=== PATIENT | female | born 1960 | race Caucasian/White ===

== ENCOUNTER → 2017-10-04 15:33 | Outpatient (CLI) | payer OTHER, SELFPAY ==
--- NOTE | 2017-10-04 15:38 | BI_ITS ---
MAMMOGRAPHY - BILATERAL SCREENING 3-D JOSSE SYNTHESIS REASON FOR EXAM: Female, 56 years old. Bilateral Screening 3-D tomosynthesis PERTINENT HISTORY: No significant family history. TECHNIQUE: 2-D mammograms and 3-D Josse synthesis of the breast (s) were performed. CAD was performed. COMPARISON: 05/04/2016 through 04/03/2013. FINDINGS: The breast composition is heterogeneously dense that can obscure small breast masses. No new significant architectural distortion, asymmetric density, abnormal microcalcification cluster, dominant mass, adenopathy, skin thickening or nipple retraction identified. Coarse benign-appearing calcifications. No significant abnormality identified with tomosynthesis. BI/SCREENING MAMM (CAD), BILAT IMPRESSION: No mammographic sign of malignancy. Routine yearly mammograms recommended. ASSESSMENT CATEGORY: BIRADS Category 2: Benign. A letter regarding these results will be sent to the patient by the facility within 30 days. FOLLOW UP RECOMMENDATION: Yearly follow up mammogram recommended. (A) Negative results should not deter biopsy as a palpable lesion if present should be followed on clinical grounds and biopsy performed if clinically persistent for 3 months or increasing size. Approximately 10% of breast cancers are not detected by mammography. A normal mammogram should not delay biopsy of a clinically suspicious abnormality. Electronically Signed: Leobardo Estrada, at 21:52 EDT Tel , Service support ,
== END ==
PROVIDERS: Family Provider Family Medicine; PCP Family Medicine; Visit Provider Obstetrics & Gynecology
DX: Z12.31 Encounter for screening mammogram for malignant neoplasm of breast (principal)
CPT/HCPCS: 77063; 77067

== ENCOUNTER 2018-06-19 10:31 | Day surgery (SDC) | payer OTHER, SELFPAY ==
[2018-06-17 18:49] LABS: Hematocrit 40.7 % (37-47); Hemoglobin 13.1 g/dl (12.0-15.0); Mean Corp Hgb Conc 32.2 g/gl (32-36); Mean Corpuscular Hgb 27.7 pg (27.0-32.0); Mean Platelet Vol. 10.3 fl (6.2-12.0); Platelet Count 242 K/mm3 (150-450); RBC Distribution Width CV 13.5 % (11.6-14.6); Red Blood Count 4.73 M/mm3 (4.2-5.4); White Blood Count 6.6 K/mm3 (4.4-11.0)
[2018-06-17 19:34] LABS: Scan Indicated on CBC? Y/N NO
[2018-06-19] VITALS (7 sets, daily range): BP systolic 95–115; BP diastolic 53–67; PULSE 69–90; RESP 16–18; TEMP 36.6–37; O2SAT 93–100; BMI 21.7
--- NOTE | 2018-06-19 | FLU_PTH ---
PATIENT: LOLI PAGAN [place] [facility] [id number] AGE/SX: 57/F ROOM: RE06/19/[address]: Dr. Ursula Batista MD : 1960 BED: DIS: 06/19/2018 SPEC #: [id number] RECD: 06/19/18 14:30 STATUS: FORTINO KATELIN #: [id number] MAX: 06/19/18 00:[address]: Ursula Batista DEPT: CYTOLOGY RECD BY: Alan Spencer ENTERED: 06/19/18 14:31 SP TYPE: Fluid OTHR DR: Dr. Robbin Quiros III, MD Tissues: OVARIAN CYST Procedures: Special Stain Group II Surgery Specimen Level IV Cytospin Fluid HEADER OPERATION: Laparoscopic right salpingo-oophorectomy, hysteroscopy PRE-OP DIAGNOSIS: Postmenopausal bleeding, right ovarian cyst TISSUE SUBMITTED: Right ovary cyst fluid for cytology DIAGNOSIS CYTOLOGY Right ovary cyst fluid for cytology (cytospin and cell block): Negative for malignant cells. See comment. SJ:rg 06/20/18 COMMENT The specimen predominantly consists of benign epithelial cells and macrophages. Mucin stain with matched control is used in the evaluation of the specimen. No mucin positive cells are noted. Please also correlate with corresponding surgical specimen ([id number]). CYTOLOGY STUDY Slides are reviewed. CYTOLOGY GROSS Received is 10 ml of yellow cloudy fluid labeled with the patient's name and and designated per the requisition as right ovarian cyst. Submitted for cytology preparation including cell block. / 06/19/18 TC:5 CPT: 59621, 09293, 23425
--- NOTE | 2018-06-19 | OV_PTH ---
PATIENT: LOLI PAGAN LOC: [facility] [place] U#:[id number] AGE/SX: 57/F ROOM: RE06/19/[address]: Dr. Ursula Batista MD : 1960 BED: DIS: 06/19/2018 SPEC #: [id number] RECD: 06/19/18 14:31 STATUS: FORTINO KATELIN #: [id number] MAX: 06/19/18 00:[address]: Ursula Batista DEPT: SURGICAL PATHOLOGY RECD BY: Alan Spencer ENTERED: 06/19/18 14:31 SP TYPE: OVARY OTHR DR: Dr. Robbin Quiros III, MD Tissues: A - Right ovary B - Endometrium, NOS Procedures: Special Stain Group II Mucicarmine Stain (control) Surgery Specimen Level IV Surgery Specimen Level V HEADER OPERATION: Laparoscopic right salpingo-oophorectomy, hysteroscopy PRE-OP DIAGNOSIS: Postmenopausal bleeding, right ovarian cyst TISSUE SUBMITTED: A - Right ovary and fallopian tube, B - Endometrial polyp MICROSCOPIC DIAGNOSIS A. 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 See comment. Fibroma (2 cm in greatest dimension). See comment. B. Endometrial polyp: Benign endometrial polyp with focal simple cystic hyperplasia without atypia. SJ:zbigniew 06/20/18 COMMENT A. Mucinous stain with matched control was used in the evaluation of the specimen. Lining cells are positive for mucin. MICROSCOPIC DESCRIPTION Slides are reviewed. GROSS DESCRIPTION A - Received in fixative is one container labeled with the patient's name and designated right ovary and fallopian tube. The specimen consists of a collapsed cystic ovary and adjacent fallopian tube. The fallopian tube measures 6 cm in length and 0.5 cm in diameter. The fimbrial end is identified. Focal tuboovarian adhesions are noted. The soft to cystic ovary measures 5.5 x 4 x 1.5 cm. The outer surface is smooth. The ovary weighs 15 gm. Sections reveal a cyst filled with a small amount of mucoid material occupying almost entire ovary. A focal solid area is noted measuring 2 x 1 x 1 cm. The rest of the cyst wall is without any papillation. The cyst wall measures up to 0.2 cm in thickness. Air Director sections are submitted in four cassettes as follows: 1 - fallopian tube, 2 - solid area of ovary, 3 & 4 - other areas of ovary. The solid area is entirely submitted. B - Received in fixative is one container labeled with the patient's name and designated endometrial polyp. The specimen consists of a buchanan-pink polyp measuring 3 x 1.2 x 0.4 cm. The specimen is longitudinally sectioned and submitted entirely in one cassette. / SJ:zbigniew 06/19/18 TC:1 CPT: 51520, 45184, 80307
--- NOTE | 2018-06-19 11:58 | PCM.DC.D&C ---
Discharge Diet: No Restrictions Discharge Activity: May not drive while taking narcotic pain medications., May Shower, May Take a Tub Bath Return to work on:: 06/23/18 May resume sexual activity in: 1-2 weeks Call your doctor if you observe: Fever of 101 or Higher, Using more than one pad per hour, Uncontrolled pain Change Dressing in (Days):: 4 Remove Dressing in (days):: 4 Cleanse incision/area with: Soap & Water, Keep Dressing Clean & Dry Additional Instructions: Take Tylenol 500 mg - 1000 mg every 8 hrs as needed. You may ADD EITHER two Aleve or three Ibuprofen by mouth every 8 hrs for pain. Add OxyIR as needed for more severe pain. Resume activity as comfortable. Allergies/Adverse Reactions: Allergies No Known Allergies Allergy (Verified 06/19/18 10:40) Medications to take at Discharge Fexofenadine HCl [Magda Allergy] 180 mg PO DAILY 06/19/18 Lutein 20 mg PO DAILY 06/19/18 Mometasone Furoate [Nasonex] 1 spray NASAL DAILY 06/19/18 Multivitamin [Daily Multiple Vitamin] 1 each PO DAILY 06/19/18 Omeprazole [Prilosec] 20 mg PO DAILY 06/19/18 Oxycodone [Oxyir] 5 - 10 mg PO Q6H PRN PRN 3 Days #10 tablet 06/19/18 The following prescriptions were given: Oxycodone [Oxyir] 5 - 10 mg PO Q6H PRN PRN 3 Days #10 tablet PRN Reason: Mod-Severe Pain (4-10/10) Primary Care Physician: Robbin Quiros III, MD [Primary Care Provider] - Test Results: Test results from this visit will be discussed in further detail at your follow-up appointment, if applicable. Please Follow Up With: Ursula Batista MD - [phone] When: in 2 wk for postoperative check up.
--- NOTE | 2018-06-19 12:03 | DCINST_ITS ---
Discharge Diet: No Restrictions Discharge Activity: May not drive while taking narcotic pain medications., May Shower, May Take a Tub Bath Return to work on:: 06/23/18 May resume sexual activity in: 1-2 weeks Call your doctor if you observe: Fever of 101 or Higher, Using more than one pad per hour, Uncontrolled pain Change Dressing in (Days):: 4 Remove Dressing in (days):: 4 Cleanse incision/area with: Soap & Water, Keep Dressing Clean & Dry Additional Instructions: Take Tylenol 500 mg - 1000 mg every 8 hrs as needed. You may ADD EITHER two Aleve or three Ibuprofen by mouth every 8 hrs for pain. Add OxyIR as needed for more severe pain. Resume activity as comfortable. Allergies/Adverse Reactions: Allergies No Known Allergies Allergy (Verified 06/19/18 10:40) Medications to take at Discharge Fexofenadine HCl [Magda Allergy] 180 mg PO DAILY 06/19/18 Lutein 20 mg PO DAILY 06/19/18 Mometasone Furoate [Nasonex] 1 spray NASAL DAILY 06/19/18 Multivitamin [Daily Multiple Vitamin] 1 each PO DAILY 06/19/18 Omeprazole [Prilosec] 20 mg PO DAILY 06/19/18 Oxycodone [Oxyir] 5 - 10 mg PO Q6H PRN PRN 3 Days #10 tablet 06/19/18 The following prescriptions were given: Oxycodone [Oxyir] 5 - 10 mg PO Q6H PRN PRN 3 Days #10 tablet PRN Reason: Mod-Severe Pain (4-10/10) Primary Care Physician: Robbin Quiros III, MD [Primary Care Provider] - Test Results: Test results from this visit will be discussed in further detail at your follow- up appointment, if applicable. Please Follow Up With: Ursula Batista MD - [phone] When: in 2 wk for postoperative check up.
--- NOTE | 2018-06-19 12:08 | OP.PCM_ITS ---
Report of Operation Date of Procedure: 06/19/18 Pre-Operative Diagnosis: postmenopausal bleeding, thickened endometrial stripe. R ovarian cyst 5-6 cm Post-Operative Diagnosis: Same Surgery/Procedure Performed:: Laparoscopy. R oophorectomy. Hysteroscopy, D and C Description of Surgical Findings:: Laparoscopic Findings: There is a normal-appearing [anteverted] uterus. The uterine fundus was adherent to the anterior abdominal wall. The left fallopian tube and ovary was normal in appearance. The right ovary was enlarged , well encapsulated with no surface excrescences, and freely mobile. Gross inspection of the bowel, omentum, liver edge are within normal limits. Photos were taken of the uterus and left fallopian tube and ovary after the right salpingo-oophorectomy. Hysteroscopic findings: Normal-appearing atrophic endometrium. Large endometrial polyp noted. Normal tubal ostia visualized bilaterally. manager risk management: Barbara Irizarry Type of Anesthesia:: General - Dr Ramos Anesthesiologist: Jason Vinson - [facility] Specimen's removed: R ovary and fallopian tube. Endometrial polyp Drains: Red Dempsey catheter Estimated Blood Loss (mL): 20 Fluids Replaced: LR Description of Procedure: Narrative account: After the risks, benefits, alternatives of the procedure have been reviewed with the patient, informed consent was obtained. The patient was taken to the operating room with an IV running. She was positioned on the operating table in dorsal supine position, where she was given general anesthesia. Once asleep she was repositioned into the dorsal lithotomy position and prepped and draped in the usual sterile fashion. A red Dempsey catheter was used to drain the bladder prior to initiating the case. A sponge stick was placed into the vagina to allow manipulation of the cervix and uterus during the case. Attention was then turned to the anterior abdominal wall where 0.5% percent Marcaine with epinephrine was instilled at the suprapubic and infraumbilical skin and at a point midway between the two, in the midline. Skin incisions were then created in the midline at the suprapubic skin, at the infraumbilical skin, and at a point in the midline midway between the two. While maintaining upward traction of the anterior abdominal wall, a Veress needle was inserted through the umbilical incision into the peritoneal cavity. There was free drop of saline, low opening pressure and free flow of CO2 noted. Once the intra-abdominal pressure had reached 12 mmHg the Veress needle was removed and a bladeless 5 mm trocar was inserted through the infraumbilical skin incision into the peritoneal cavity. Correct placement was confirmed using the scope. Under direct visualization then with the patient in Trendelenburg position, a bladeless 12 mm trocar was inserted in through the suprapubic skin incision into the peritoneal cavity, and a 5 mm bladeless trocar was placed at the mid-lower abdominal incision midway between the infraumbilical and suprapubic trocars. The uterus was anteverted and adherent to the anterior abdominal wall at the anterior fundus. Using the LigaSure device this adhesion was divided along with filmy adhesions at the lower uterine segment and the uterus fell free to the posterior pelvis. The left fallopian tube and ovary were WNL. The R fallopian tube appeared normal, but was stretched across the enlarged freely mobile right ovary. The ovary was smoothly encapsulated without excrescences. The right fallopian tube and ovary were grasped and retracted medially and using a LigaSure device the right fallopian tube and ovary were excised from the infundibulopelvic ligament and the uteroovarian ligament. The right ovary and fallopian tube were then placed in an EndoCatch bag and brought through the suprapubic trocar. The trocar was removed and the bag was brought to the suprapubic skin. The bag was opened at the top and a needle aspirator was used to aspirate serous appearing sticky fluid from the ovary The ovary was collapsed in this manner and brought through the suprapubic incision in the intact EndoCatch bag. The suprapubic trocar was reintroduced into the abdominal cavity. Laparoscopy revealed excellent hemostasis at the excision site. Photos were taken of the uterus and remaining left fallopian tube and ovary and of the right upper quadrant and liver edge. At this point the laparoscopic portion of the procedure was terminated. The pneumoperitoneum was reduced and the instruments and trocars were removed from the anterior abdominal wall skin. The suprapubic fascia was closed with 2-0 Vicryl. The skin incisions were closed with 4-0 Monocryl in a subcuticular fashion Dermabond and op sites were applied to the skin. The single-toothed tenaculum and Louis cannula were then removed from the vagina. Attention was then turned to the hysteroscopy, D and C and possible polypectomy. The sponge stick was removed from the vagina. A Graves speculum was placed into the vagina and the cervix was brought into view. Cervix was instilled with 10 cc of 1% lidocaine [without] epinephrine as a paracervical block using a 20-gauge spinal needle in the 2:00 4:00 8:00 and 10:00 positions. A single- tooth tenaculum was applied to the anterior lip of the cervix. The cervix was sequentially dilated to allow admission of the hysteroscope. The hysteroscopy was performed with the findings noted above. A sharp curettage was then performed and pieces of tissue were were withdrawn and set aside for later pathology review. There was good crei in all quadrants This point the procedure was terminated the single-toothed tenaculum was removed from the anterior lip of the cervix and a Ray-Wayne gauze was used to remove any remaining tissue and blood from the upper vagina and cervix. Excellent hemostasis was noted. The speculum was removed. The patient was returned to dorsal supine position. She was awakened from general anesthesia and then transferred to her recovery room bed in stable condition after tolerating the procedure well. Sponge, lap, needle, and instrument counts were correct x2. Medications given intraoperatively included 10 cc of half percent Marcaine with epinephrine used as a subcutaneous block and Toradol 30 mg IV x1. For complete listing the medications given intraoperatively, see the anesthesia record. - Admit VTE Documentation VTE Present on Admission: No VTE Mechan Device Prophylaxis: SCD's VTE Pharm Prophylaxis ordered?: No
[2018-06-19] MEDS: Bupiv/Epi 0.5% Mpf 30 ML Vial (12:20)
== END 2018-06-19 15:52 | disposition home or self-care (01) ==
LOC: SDC 10:32 → AC 10:33
PROVIDERS: Family Provider Family Medicine; PCP Family Medicine; Referring Provider Obstetrics & Gynecology; Visit Provider Obstetrics & Gynecology
PROC: (CPT 58720; principal; 2018-06-19 11:45)
DX: D27.0 Benign neoplasm of right ovary (principal); D39.11 Neoplasm of uncertain behavior of right ovary; N85.01 Benign endometrial hyperplasia; K21.9 Gastro-esophageal reflux disease without esophagitis; Z79.899 Other long term (current) drug therapy
CPT/HCPCS: 00952; 58558; 58661; 36415; 85027; 86850; 86900; 88108; 88305; 88307; 88313; J7120; J2405

== ENCOUNTER → 2018-10-10 12:15 | Outpatient (CLI) | payer OTHER, SELFPAY ==
[2018-06-19 10:54] VITALS: BMI 21.7
--- NOTE | 2018-10-10 12:19 | BI_ITS ---
MAMMOGRAPHY - BILATERAL SCREENING REASON FOR EXAM: Female, 57 years old. Routine annual screening examination. PERTINENT HISTORY: Non-contributory. TECHNIQUE: Digital bilateral breast josse (3D mammographic acquisition) in the CC and MLO projections. 2-D mediolateral oblique (MLO) and craniocaudad (CC) views of both breasts were obtained. CAD: Full Field Digital Mammography with Computer Added Detection was performed. COMPARISON: Comparison is made with prior study dated October 04, 2017 and May 04, 2016. FINDINGS: Breast Composition: The breasts are heterogeneously dense, which may obscure small masses. There are no dominant masses or suspicious calcifications. No other significant abnormalities are identified. There has been no significant change since the prior study. BI/SCREEN MAMM (CAD) W/JOSSE BILAT IMPRESSION: Stable bilateral screening mammogram. Yearly follow-up mammogram recommended. (A) ASSESSMENT CATEGORY: BIRADS Category 1: Negative. A letter regarding these results will be sent to the patient by the facility within 30 days. Approximately 10% of breast cancers are not detected by mammography. A normal mammogram should not delay biopsy of a clinically suspicious abnormality. [id number] Electronically Signed: Klever Laguerre, at 13:05 EDT , Service support ,
== END ==
PROVIDERS: Family Provider Family Medicine; PCP Family Medicine; Referring Provider Obstetrics & Gynecology; Visit Provider Obstetrics & Gynecology
DX: Z12.31 Encounter for screening mammogram for malignant neoplasm of breast (principal)
CPT/HCPCS: 77063; 77067

== ENCOUNTER → 2019-10-13 08:13 | Outpatient (CLI) | payer OTHER, SELFPAY ==
[2018-06-19 10:54] VITALS: BMI 21.7
--- NOTE | 2019-10-13 08:20 | BI_ITS ---
MAMMOGRAPHY - BILATERAL SCREENING REASON FOR EXAM: Female, 58 years old. Routine annual screening examination. PERTINENT HISTORY: Non-contributory. TECHNIQUE: Digital bilateral breast josse (3D mammographic acquisition) in the CC and MLO projections. 2-D mediolateral oblique (MLO) and craniocaudad (CC) views of both breasts were obtained. CAD: Full Field Digital Mammography with Computer Added Detection was performed. COMPARISON: Comparison is made with prior study dated 10/10/2018 and 10/04/2017. FINDINGS: Breast Composition: The breasts are heterogeneously dense, which may obscure small masses. There are no dominant masses or suspicious calcifications. No other significant abnormalities are identified. There has been no significant change since the prior study. BI/SCREEN MAMM (CAD) W/JSOSE BILAT IMPRESSION: Stable bilateral screening mammogram. Yearly follow-up mammogram recommended. (A) ASSESSMENT CATEGORY: BIRADS Category 1: Negative. A letter regarding these results will be sent to the patient by the facility within 30 days. Approximately 10% of breast cancers are not detected by mammography. A normal mammogram should not delay biopsy of a clinically suspicious abnormality. [id number] Electronically Signed: Klever Laguerre, at 9:13 EDT , Service support ,
== END ==
PROVIDERS: PCP Family Medicine; Referring Provider Obstetrics & Gynecology; Visit Provider Obstetrics & Gynecology
DX: Z12.31 Encounter for screening mammogram for malignant neoplasm of breast (principal)
CPT/HCPCS: 77063; 77067

== ENCOUNTER → 2020-01-26 10:20 | Outpatient (CLI) | payer OTHER, SELFPAY ==
[2018-06-19 10:54] VITALS: BMI 21.7
[2020-02-01 01:44] LABS: HPV APTIMA, High Risk Negative (Negative); HPV Reflexed? NOT INDICATED
== END ==
PROVIDERS: PCP Family Medicine; Visit Provider Student in an Organized Health Care Education/Training Program
DX: Z12.4 Encounter for screening for malignant neoplasm of cervix (principal)
CPT/HCPCS: 88175; G0145

== ENCOUNTER → 2020-03-21 | Outpatient (CLI) | payer OTHER, SELFPAY ==
[2018-06-19 10:54] VITALS: BMI 21.7
--- NOTE | 2020-03-22 | EMB_PTH ---
PATIENT: LOLI PAGAN LOC: [facility] U#:[id number] AGE/SX: 59/F ROOM: RE03/21/[address]: Dr. Nazia Ojeda DO : 1960 BED: DIS: 03/21/2020 SPEC #: [id number] RECD: 03/22/20 10:41 STATUS: FORTINO KATELIN #: [id number] MAX: 03/22/20 00:[address]: Nazia Ojeda DEPT: SURGICAL PATHOLOGY RECD BY: Alan Spencer ENTERED: 03/22/20 10:41 SP TYPE: ENDOM BX/C SHEA DR: Dr. Robbin Quiros III, MD Tissues: Endometrium, NOS Procedures: Surgery Specimen Level IV HEADER OPERATION: Endometrial biopsy PRE-OP DIAGNOSIS: Endometrial polyp with endometrial hyperplasia TISSUE SUBMITTED: Endometrial biopsy MICROSCOPIC DIAGNOSIS Endometrial biopsy: Scant fragment of benign ecto- and endocervical epithelium with mild acute and chronic inflammation and mucous. See comment. SJ:zbigniew 03/23/2020 COMMENT The specimen predominantly consists of mucous. Endometrial tissue is not identified in the submitted specimen. Clinical correlation and appropriate follow up are necessary. Please make reference to previous specimen ([id number]), endometrial polyp with diagnosis of benign endometrial polyp with focal simple cystic hyperplasia without atypia. MICROSCOPIC DESCRIPTION Slides are reviewed. GROSS DESCRIPTION Received in fixative is one container labeled with the patient's name and designated endometrial biopsy. The specimen consists of multiple irregular fragments of buchanan mucoid tissue that in aggregate measure 1 x 0.7 x 0.2 cm. The specimen is totally submitted in one cassette. / MATT:zbigniew 03/22/20 TC: Cannot code CPT: 92797
== END | disposition home or self-care (01) ==
LOC: LABSPEC 03-22 08:28
PROVIDERS: PCP Family Medicine; Visit Provider Student in an Organized Health Care Education/Training Program
DX: N84.0 Polyp of corpus uteri (principal)
CPT/HCPCS: 88305

== ENCOUNTER → 2020-04-14 12:54 | Outpatient (CLI) | payer OTHER, SELFPAY ==
[2018-06-19 10:54] VITALS: BMI 21.7
--- NOTE | 2020-04-14 12:58 | CT_ITS ---
STUDY: CT ABDOMEN AND PELVIS WITH AND WITHOUT CONTRAST REASON FOR EXAM: Female, 59 years old. MASS FOUND IN BLADDER ON US AT OBGYN OFFICE, LOW ABD PAIN WHEN AREA PRESSED ON, RT OOPHERECTOMY RADIATION DOSAGE (If Supplied By Facility): CTDIvol = ( 12.69 ) mGy, DLP = ( 1826.63 ) mGycm TECHNIQUE: Transaxial images were obtained from the dome of the diaphragm to the symphysis pubis without oral contrast. IV 100mL Isovue-300 was administered. Sagittal and coronal images were reconstructed. Individualized dose optimization techniques were used for this CT. COMPARISON: None. FINDINGS: The visualized lung bases are unremarkable. The visualized portions of the heart are within normal limits. Normal liver. Normal gallbladder and extrahepatic biliary system. Normal spleen. Normal pancreas. Normal bilateral adrenal glands. Normal right kidney. Normal left kidney. Normal visualized stomach. Normal small intestine. Normal colon. The appendix is visualized and appears normal. Normal abdominal aorta. Normal inferior vena cava. Normal retroperitoneum. Normal urinary bladder. Normal visualized uterus. Normal abdominal wall. Normal osseous structures. CT/CT Abd/Pelvis W/WO Contrast IMPRESSION: Normal unenhanced and enhanced CT of the abdomen and pelvis. There is no abnormal mass in the urinary bladder. Electronically Signed: Mita Yadav MD at 14:07 EST Tel , Service support ,
== END ==
PROVIDERS: PCP Family Medicine; Referring Provider Nurse Practitioner Adult Health; Visit Provider Nurse Practitioner Adult Health
DX: R93.41 Abnormal radiologic findings on diagnostic imaging of renal pelvis, ureter, or bladder (principal)
CPT/HCPCS: 74178; Q9967

== ENCOUNTER 2021-12-11 18:30 | Outpatient (RCR) | payer OTHER, SELFPAY ==
--- NOTE | 2021-10-13 07:55 | HP.OTEVAL_ITS ---
Patient's Visit Information LOLI PAGAN is a 60 year old F, referred to Occupational Therapy by ROOSEVELT YUEN, with a diagnosis of Boutonniere deformity of left LF.. Date of Evaluation: 10/10/21 Occupational Therapist: Taryn Dang, SHERI/Katharine, CHT - Subjective This 60 year old female was seen for OT eval with dx of Boutonniere deformity of left LF. pt states 10 years ago she injured her left LF- pt states she had reconstructive sx but this sx was not successful. 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 Ortiz. He recommended sx - pt underwent sx to repair Boutonniere deformity in August 23, 2021. Extensor tenotomy for reposition ing of the deformed DIP Joint and arthrodesis of DIP joint with internal fixation with Buzz wires and local bone graft- stitches removed 09/14/21 and pins removed 09/28/21 (3 pin sites) pt arrives with the custom orthosis provided by Kelly WADE/Katharine on 08/28/21. pt demo ind. removal of orthosis and demo understanding of prior ROM exercise given - pt has concerns her finger is not moving well. This is limiting her IND with ADLs and IADLs and playing her violin. - ROM MP: right 0/100 left 0/105 PIP: right 0/100 left -55/70 DIP: right 0/85 left 15/15 ROM Comments: pt demo with limited right LF PIPJ motion-. DIP fusion - Strength Patient Manager: right 60# left NT Lateral Pinch: right 8# left NT Tripod Pinch: right 10# left NT - Quick DASH-Disab of Arm,Shoulder& Hand Quick DASH Score: 31.5775 - Goals Goal:100% adherence to protocol: Yes Goal:Daily scar massage when approriate: Yes Goal:ROM equal to unaffected hand: Yes Comment: PIP ROM of -10/90 or greater Goal:Patient Manager/Pinch strength at least 75% of unaffected hand: Yes Goal:Full use of affected hand in daily activities including: Yes Goal:Decrease scar hypersensitivity: Yes - Rehabilitation General Assessment: pt underwent sx to repair Boutonniere deformity in August 23, 2021. Extensor tenotomy for repositioning of the deformed DIP Joint and arthrodesis of DIP joint with internal fixation with Buzz wires and local bone graft- stitches removed 09/14/21 and pins removed 09/28/21 (3 pin sites) pt arrives with the custom orthosis provided by Kelly Mcdonald OTR/L on 08/28/21. pt currently demo with limited PIP ROM, weakness increasing difficulty with IADLS and leisure tasks. Pt would benefit from further skilled OTR/L,CHT services 1-2x week for 4 -6 weeks to assist pt in reaching her maximal ROM and rehab potential. Rehabilitation Potential: Fair - Anticipated Interventions A/AAROM/PROM, Strengthening, Scar Care, Triggerpoint Release, Modalities, Orthoses, Joint Protection/Energy Conservation, Ergonomic Education, Fine Motor Coord/Alexis, Education re Diagnosis - Visit Plan Frequency: 1-2x /Week Duration: 4 Months TEXT: Thank you for the opportunity to evaluate your patient. For Medicare and Medicare HMO plans, please review the plan of care and approve it. It will need to be FAXED BACK to us at [phone] for Medicare purposes. Please let me know if there are questions or concerns regarding this plan of care. Physician Signature: Date:
--- NOTE | 2021-10-31 07:41 | OTREVAL_ITS ---
ROOSEVELT YUEN, It has been my pleasure to treat LOLI PAGAN over the last 4 visits for Boutonniere deformity of left LF.. Please see the progress note below for an update on the occupational therapy plan of care! 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 pt states she works with her finger daily has noticed stiffness of joint is better with flexion - has not been able to gain extension- Objective/Function: pt demo with PIP ROM of -55/90*. TROM 35*. left MCP flexion 100*. Please advise on expectation of pts PIP extension Plan Frequency: 1-2x /Week Duration: 4 Weeks Plan: cont to increase strength and ROM (blocking/ PROM). pt to start playing her violin. return to daily tasks Goals - Goals Patient Goals: Regain Mobility, Improve Fine Motor Skills, Use Hand/Wrist/Arm Normally Again Goal:100% adherence to protocol: Yes Goal:Daily scar massage when approriate: Yes Goal:ROM equal to unaffected hand: Yes Goal:Pattern Illustrator/Pinch strength at least 75% of unaffected hand: Yes Goal:Full use of affected hand in daily activities including: Yes Goal:Decrease scar hypersensitivity: Yes Anticipated Interventions Anticipated Interventions: A/AAROM/PROM, Strengthening, Scar Care, Triggerpoint Release, Modalities, Orthoses, Joint Protection/Energy Conservation, Ergonomic Education, Fine Motor Coord/Alexis, Education re Diagnosis Please do not hesitate to contact me at [phone] by phone or if you have questions or concerns regarding this new plan of care! Sincerely, Taryn Dang, OTR/L, CHT
--- NOTE | 2022-02-28 09:53 | HP.OT.NRP ---
LOLI PAGAN was seen in my office for initial evaluation on 10/10/21. The following Plan of Care was established for this patient: Initial Frequency: 1-2x /Week Initial Duration: 4 Weeks Plan: cont to increase strength and ROM (blocking/ PROM). pt to start playing her violin. return to daily tasks Anticipated Interventions: A/AAROM/PROM, Strengthening, Scar Care, Triggerpoint Release, Modalities, Orthoses, Joint Protection/Energy Conservation, Ergonomic Education, Fine Motor Coord/Alexis, Education re Diagnosis This patient was last seen in our office 12/11/21. Pertinent comments regarding their Occupational therapy will appear below: pt last seen with measurements 95* flexion 60* ext. pt demo understanding of her HEP. Pt was last seen on 12/11/21 and at this time is d/c with HEP. [ End ] At this point I will be discontinuing this patient from occupational therapy. I would be happy to see this patient again in the future if found appropriate by the physician. Thank you! Taryn Dang, OTR/L, CHT
== END 2021-12-11 19:00 | disposition home or self-care (01) ==
LOC: OT 18:30
PROVIDERS: PCP Internal Medicine
DX: M20.022 Boutonniere deformity of left finger(s) (principal)
CPT/HCPCS: 97035; 97110; 97140; 97166; 97530

== ENCOUNTER 2022-02-20 09:59 | Emergency (ER) | payer OTHER, SELFPAY ==
[2022-02-20 09:59] VITALS: BP 125/73; PULSE 90; RESP 18; TEMP 36.6; O2SAT 99; BMI 23.1
--- NOTE | 2022-02-20 10:26 | EDS_ITS ---
HPI History of Present Illness Chief Complaint: Shortness of Breath Detail of Chief Complaint: Not feeling well x2 weeks Informant: patient Narrative Narrative: Patient presents the emergency department with complaint of shortness of breath that really started yesterday. Patient states overall she is not been feeling well for about 2 weeks. Patient initially had a pharyngitis. Patient seen in urgent care 3 days ago and diagnosed with influenza A. Patient seen by nurse practitioner for her PCP today and it was noted that she had some stridor with cough and hard time catching her breath and was referred to the ER for concern for possible pneumonia. Patient continues to have temps up to 103. Patient was prescribed Tamiflu today. Patient denies recent travel or surgery. She does cough frequently and describes some chest soreness mostly at the end of the day. Patient states that her is now also with upper respiratory symptoms and her son has developed upper respiratory symptoms. 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 Patient has had her flu vaccine and COVID-vaccine. PFSH PFSH Medical History no medical history Home Medications fexofenadine 180 mg tablet (Magda Allergy) 180 mg PO DAILY 06/19/18 [History Last Taken Unknown] lutein 20 mg capsule 20 mg PO DAILY 06/19/18 [History Last Taken Unknown] mometasone 50 mcg/actuation nasal spray (Nasonex) 1 spray DAILY 06/19/18 [Hist ory Last Taken Unknown] multivitamin (Daily Multiple tablet) 1 ea PO DAILY 06/19/18 [History Last Taken Unknown] omeprazole 20 mg capsule,delayed release 20 mg PO DAILY 06/19/18 [History Last Taken Unknown] benzonatate 200 mg capsule 200 mg PO TID PRN cough #20 caps 02/20/22 [Rx Last Taken Unknown] prednisone 20 mg tablet 20 mg PO BID #10 tabs 02/20/22 [Rx Last Taken Unknown] Allergy/AdvReac Type Severity Reaction Status Date / Time CHLORAHEXIDINE AdvReac NEEDS Uncoded 02/20/22 10:03 FOLLOW-UP Surgical History no surgical history Social History Smoking Status: Never smoker ROS ROS ED Review of Systems ROS Unobtainable: other Constitutional Constitutional ED: Reports fever(s) and lethargy; Denies chills, sweats or weight loss Eyes Eyes: Denies blurry vision, change in vision or diplopia ENT ENT ED: Denies rhinorrhea or sore throat Cardiovascular Cardiovascular: Reports chest pain; Denies orthopnea or racing heartbeat Respiratory/Chest Respiratory/Chest: Reports cough, dyspnea and dyspnea on exertion; Denies orthopnea or sputum Gastrointestinal Gastrointestinal: Denies abdominal pain, diarrhea, nausea or vomiting Genitourinary Genitourinary ED: Denies dysuria, hematuria or urinary frequency Musculoskeletal Musculoskeletal: Denies arthralgias, back pain, myalgias or neck pain Integumentary Denies abscess, Abrasions or rash Neurologic Neurologic: Denies headache(s) or weakness Psychiatric Psychiatric: Denies anxiety, depression or suicidal thoughts Endocrine Endocrinology: Denies polydipsia, polyphagia or polyuria Hematologic/Lymphatic Hematologic/Lymphatic: Denies easy bleeding, easy bruising or lymphadenopathy Allergic/Immunologic Allergic/Immunologic ED: Denies mouth swelling, tongue swelling or urticaria EXAM Physical Exam Const Vital Signs: 02/20/22 09:59 02/20/22 10:35 Temperature 98 F Temperature Source Temporal Pulse Rate 90 Respiratory Rate 18 Respiratory Effort Short of Breath Labored Respiratory Depth Normal Respiratory Pattern Normal Blood Pressure 125/73 H Blood Pressure Mean 90 Pulse Ox 99 Oxygen Delivery Method Room Air Room Air Positive well nourished and well developed General Appearance ED: well developed and NAD HEENT Reports TM's clear and moist mucous membranes normocephalic and atraumatic; Negative for trauma or tenderness Tympanic Membrane ED: Yes TM's clear Eyes PERRL and EOMs intact bilaterally General Eye ED: Negative for pale conjunctiva or scleral icterus Neck no lymphadenopathy, supple and no JVD General: Negative for tenderness Chest Wall inspection of chest normal and palpation of chest normal Chest: Negative for tenderness Resp normal respiratory effort Resp Narrative: Patient with some coarse breath sounds bilaterally with some expiratory wheezes bilaterally. No significant tachypnea. No accessory muscle use or retractions. No conversational dyspnea. Effort and Inspection: Negative for respiratory distress or pain with movement Auscultation: Negative for rhonchi, wheezes or diminished lung sounds Cardio regular rate, regular rhythm, S1 normal heart sound, S2 normal heart sound and no murmurs Peripheral Pulses: pulses 2+ throughout GI normal to inspection, nondistended, normoactive bowel sounds, soft to palpation, non-tender, non-distended and no masses Back/Spine no CVA tenderness and no thoracic nor lumbar tenderness Extremity normal to inspection General Extremety ED: Negative for edema General Extremity: Negative for edema Neuro oriented x3, CN's II-XII intact bilaterally, no sensory deficits noted and gait normal Sensorium / Orientation: awake, alert, oriented to person, oriented to place and oriented to time Motor Exam: strength 5/5 throughout and strength abnormal Psych mental status grossly normal Skin no rashes or lesions noted and no wounds MDM MDM MDM Narrative Medical decision making narrative: Patient was given DuoNeb aerosol and she felt markedly improved after treatment. Patient was given a dose of prednisone. Chest x-ray obtained showed no evidence of infiltrate. At this point I suspect a reactive airway disease related to her influenza. Patient will be given a prescription for prednisone and albuterol MDI as well as Tessalshara Hubbard. Patient to follow-up with her primary care physician within next 3 to 5 days. She is advised to return if increasing shortness of breath or condition should worsen anyway. Radiography Diagnostic Testing: Clinical Impression(s) from Imaging Studies Chest X-Ray 02/20/22 10:50 IMPRESSION: Hyperinflation. Mild increased linear markings at the left lung base suggestive of linear atelectasis and/or scarring. Electronically Signed: Klever Laguerre MD at 11:31 EST , 1 view chest x-ray obtained interpreted by myself as hyperinflation otherwise no acute disease process. Radiology felt there was some linear markings left lung base suggestive of atelectasis or scarring. Discharge Plan Triage Chief Complaint: Shortness of Breath ED Provider: Leni Torres Dx/Rx/DC Orders Clinical Impression: Influenza A, RAD (reactive airway disease) Instructions: ED Bronchitis with Wheezing (Adult), ED Influenza (Adult) Prescriptions: New prednisone 20 mg tablet 20 mg PO BID Qty: 10 0RF benzonatate 200 mg capsule 200 mg PO TID PRN (Reason: cough) Qty: 20 0RF No Action multivitamin [Daily Multiple] 1 EACH tablet 1 ea PO DAILY fexofenadine [Magda Allergy] 180 MG tablet 180 mg PO DAILY mometasone [Nasonex] 1 SPRAY spray,non-aerosol 1 spray NASAL DAILY omeprazole 20 MG capsule 20 mg PO DAILY lutein 20 MG capsule 20 mg PO DAILY Primary Care Provider: Ericka Laws Referrals: Ericka Laws MD [Primary Care Provider] - 3-5 Days Disposition Disposition: Home, Self Care
[2022-02-20 10:35] VITALS: PULSE 94; RESP 20; O2SAT 99
[2022-02-20] MEDS: Ipratropium/Albuterol Sulfate 3 ML AMPUL.NEB INHALATION (10:40)
[2022-02-20] MEDS: predniSONE 20 MG Tablet 40 MG PO (10:42)
--- NOTE | 2022-02-20 10:50 | RAD_ITS ---
STUDY: X-RAY CHEST REASON FOR EXAM: Female, 61 years old. Cough, dyspnea TECHNIQUE: PA and lateral views of the chest. COMPARISON: None. FINDINGS: Hyperinflation. Mild increased linear markings at the left lung base suggestive of either scarring and/or linear atelectasis. There is no demonstrated pleural abnormality. Normal size heart. Normal mediastinum and kamilah. Normal visualized pulmonary arteries. Normal visualized aortic arch and descending thoracic aorta. Normal visualized thoracic spine. Normal visualized ribs, clavicles, and shoulders. There is no demonstrated abnormality of the visualized soft tissue structures of the upper abdomen. RAD/Chest PA and Lateral IMPRESSION: Hyperinflation. Mild increased linear markings at the left lung base suggestive of linear atelectasis and/or scarring. Electronically Signed: Klever Laguerre MD at 11:31 EST ,
[2022-02-20] MEDS: Albuterol Sulfate 8 gm Inhaler (60 puffs) 2 PUFF INHALATION (11:49)
[2022-02-20 11:50] VITALS: BP 115/78; PULSE 96; RESP 16; TEMP 36.9; O2SAT 97
[2022-02-20 11:59] VITALS: BP 112/74; PULSE 75; RESP 16; TEMP 37; O2SAT 98
== END 2022-02-20 12:02 | disposition home or self-care (01) ==
PROVIDERS: Emergency Provider Emergency Medicine; PCP Internal Medicine; Visit Provider Emergency Medicine
DX: J10.1 Influenza due to other identified influenza virus with other respiratory manifestations (principal); J45.909 Unspecified asthma, uncomplicated
CPT/HCPCS: 71046; 94640; 99283

== ENCOUNTER 2022-10-11 09:30 | Outpatient (RCR) | payer OTHER, SELFPAY ==
--- NOTE | 2022-10-03 11:45 | HP.OTEVAL_ITS ---
Patient's Visit Information Visit Information Visit Information: LOLI PAGAN is a 61 year old F, referred to Occupational Therapy by ROOSEVELT YUEN, with a diagnosis of R carpal tunnel, L shoulder impingement, and L epicondylitis. Date of Evaluation: 10/02/22 Occupational Therapist: Taryn Dang, SHERI/Katharine, CHT Subjective Subjective: This 61 year old patient presents with R carpal tunnel, L shoulder impingement, and L epicondylitis. 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 She has been taking prednisone and anti-inflammatory started 09/29/2022 and reports feeling better. 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 Pt is very painful when carrying items and playing her violin. 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 Pt has a rolling duffle bag. Pt has been performing a long 10 hr days. Pt is right-handed. 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 kayaking (26#) > hasn't been able to perform IADL tasks Pain R hand: Current Pain Intensity: 5 Pain Intensity Range: 0 and 5 L shoulder: Current Pain Intensity: 8 Pain Intensity Range: 0 and 8 L tennis elbow: Current Pain Intensity: 4 Pain Intensity Range: 0 and 4 ROM Shoulder: R extension 61 flex 140 left shoulder ext 65 flexion 120 Elbow: R +2/130 L+9/149 Forearm: R/L WNL Wrist: R 50/80 L 55/70 ROM Comments: able to make composite fist Strength Shoulder: R ext 29.7 lbs flexion 28.7lbs. L shoulder ext 23 lbs. flexion 24lbs. Elbow: R triceps 26.3lbs biceps 34.5lbs. L triceps 23.2lbs biceps 29.6lbs Pole Peeling Machine Operator: R 65# L 55# Lateral Pinch: R 14# L 16# Tripod Pinch: R 17# L 15# Strength Comments: Pt R shoulder/elbow demonstrates decreased strength Right shoulder with some pain when perform shoulder flexion/extension strength tested on FET2 Sensation Sensation Comments: denies Quick DASH-Disab of Arm,Shoulder& Hand Quick DASH Score: 40.9075 Goals Goal:: Pt will demonstrate equal strength in L elbow/shoulder as R side to perform functional ADL/IADL tasks. Goal:: Pt to improve L shoulder flexion by 20' in order to improve functional movement during ADLs Goal:: Pt will report pain no greater than 1-2/10 with use of left shoulder with ADLs and IADLs. Pt will report pain no greater than 1-2/10 with use of left epicondylitis with ADLs and IADLs. Pt will report pain no greater than 1-2/10 with use of right carpal tunnel with ADLs and IADLs. Goal:: Pt will demonstrate understanding/knowledge of joint protection by stating 3 techniques while performing ADL/IADL tasks by 3rd week. Goal:: Pt will demo understanding of postural strengthening ex for HEP by end of 3rd session. Goal:: Pt to demo overall increased indep in ADL/IADL tasks by decreased total DASH score by 10 points by discharge. Goal:100% adherence to protocol: Yes Goal:Pole Peeling Machine Operator/Pinch strength at least 75% of unaffected hand: Yes Comment: in R hand Rehabilitation General Assessment: Pt arrives with painful L shoulder and epicondylitis and with reports of carpal tunnel syndrome. Pt is limited in her abilities to perf orm ADL and IADL tasks due to pain. She has received some relief from anti- inflammatories and prednisone in all areas. Pt noted with hyperextension of L elbow and limited left shoulder ROM. Pt R hand/wrist demonstrated good ROM though numbness in her right hand. Pt would benefit from 1-2x week for 4 weeks to gain full ROM, strength, and decrease pain and numbness in all areas involved. Pt educated in lateral epicondylitis dx, joint protection, and OT POC. Pt agreeable and verbalizes understanding of POC and treatment course. therapy session was directly supervised and doc. approved by Taryn WADE/SUSY AlcantarT Rehabilitation Potential: Excellent Anticipated Interventions Anticipated Interventions: A/AAROM/PROM, Strengthening, Edema Control, Triggerpoint Release, Modalities, Joint Protection/Energy Conservation, Ergonomic Education, Education re assistive Equipment, Education re Diagnosis and Home Program Visit Plan Frequency: 1-2x /Week Duration: 8 weeks General Plan: Joint protection/Ergonomic education L shoulder strengthening through Phase II motion (exercises given) Decrease inflammation in Right wrist Dx education A/AAROM/PROM Assistive Devices TEXT: Thank you for the opportunity to evaluate your patient. For Medicare and Medicare HMO plans, please review the plan of care and approve it. It will need to be FAXED BACK to us at [phone] for Medicare purposes. Please let me know if there are questions or concerns regarding this plan of care. Physician Signature: Date:___
--- NOTE | 2022-10-11 13:45 | HP.OTDCSUM_ITS ---
Discharge Summary D/C Summary: It has been my pleasure to treat LOLI PAGAN under orders from ROOSEVELT YUEN, for the diagnosis of R carpal tunnel, L shoulder impingement, and L epicondylitis for a total of 4 visit(s). Please see the following information for a summary of their discharge status. Overall Improvement % Improvement: 80 Objective Objective/Function: L shoulder 65/126 Prior 65/120 Fet pounds per pressure L shoulder extension 23.6# Flexion 24.1# Prior L shoulder ext 23 lbs. flexion 24lbs. R shoulder flex 24.1# ext 26.9# Prior R ext 29.7 lbs flexion 28.7lbs. Golf Course Ranger: R 65# L 55# Prior R 65# L 55# Lateral: R 12# L 10# Prior R 14# L 16# Tripod: R 17# L 15# Prior R 17# L 15# Goals Patient Goals: Regain Strength, Use Hand/Wrist/Arm Normally Again, Sleep Better, Decrease Tingling/Numbness, Increase ROM, Resume Former Household Responsibilities (Cooking,Cleaning,Yard, etc.) and Resume Hobbies Goal:: Pt will demonstrate equal strength in L elbow/shoulder as R side to perform functional ADL/IADL tasks. Goal:: Pt to improve L shoulder flexion by 20' in order to improve functional movement during ADLs Goal:: Pt will report pain no greater than 1-2/10 with use of left shoulder with ADLs and IADLs. Pt will report pain no greater than 1-2/10 with use of left epicondylitis with ADLs and IADLs. Pt will report pain no greater than 1-2/10 with use of right carpal tunnel with ADLs and IADLs. Goal:: Pt will demonstrate understanding/knowledge of joint protection by stating 3 techniques while performing ADL/IADL tasks by 3rd week. Goal:: Pt will demo understanding of postural strengthening ex for HEP by end of 3rd session. Goal:: Pt to demo overall increased indep in ADL/IADL tasks by decreased total DASH score by 10 points by discharge. Goal:100% adherence to protocol: Yes Goal:Golf Course Ranger/Pinch strength at least 75% of unaffected hand: Yes Plan Plan: Discharge patient D/C Information Discharge Comments: Pt seen for 4 visits skilled OT visits with concerns for her left shoulder pain, left epicondylitis, and right carpal tunnel syndrome. Therapist educated pt in shoulder impingement, wear of brace for CTS, and joint protection regarding lateral epicondylitis. Pt is reporting all pain has subsided. Pt has gained 6 degrees of shoulder flexion, with no pain. Pt demonstrates improved L shoulder strength and understanding of joint protection with elbows to prevent strain. Pt is agreeable for discharge. Therapy session was directly supervised and doc. approved by Taryn WADE/Katharine,FELIPE. d/c sentence: If there are questions or concerns regarding this patient's occupational thera py, please fell free to call me at [phone]. Thank you for the referral of this patient. Sincerely, SHERI Perez/Katharine, SUSYT
== END 2022-10-11 14:15 | disposition home or self-care (01) ==
LOC: OT 09:30
PROVIDERS: PCP Internal Medicine
DX: M25.812 Other specified joint disorders, left shoulder (principal); M77.12 Lateral epicondylitis, left elbow; G56.01 Carpal tunnel syndrome, right upper limb
CPT/HCPCS: 97110; 97166; 97530